=== PATIENT | male | born 1945 | race Caucasian/White ===

== ENCOUNTER 2018-01-06 16:53 | Inpatient (IN) | payer OTHER ==
[2018-01-06] MEDS: SODIUM CHLORIDE 0.9% 1L BAG IV* (22:06)
[2018-01-06] MEDS: VANCOMYCIN 1 GM (PMX) 250 ML IVPB (22:08)
[2018-01-06] MEDS: PIPER-TAZO 3.375 GM IV (PMX) 100 ML IVPB (22:08)
[2018-01-06 22:17] LABS: ADD MAN DIFF? NO
[2018-01-06 22:22] LABS: BASOPHILS % 0.2 % (0.0-2.0); EOSINOPHILS # 0.1 10^3/ul (0.0-0.5); EOSINOPHILS % 0.6 % (0.0-7.0); HEMATOCRIT 38.8 % (42.0-52.0); LYMPHOCYTES # 1.1 10^3/ul (0.8-2.9); LYMPHOCYTES % 12.9 % (15.0-51.0); MEAN CORPUSCULAR HEMOGLOBIN 31.5 pg (29.0-33.0); MEAN CORPUSCULAR HGB CONC 33.5 g/dl (32.0-37.0); MEAN CORPUSCULAR VOLUME 93.9 fl (82.0-101.0); MONOCYTE # 0.5 10^3/ul (0.3-0.9); MONOCYTES % 6.3 % (0.0-11.0); NEUTROPHIL # 6.7 10^3/ul (1.6-7.5); NEUTROPHILS % 79.8 % (39.0-77.0); PLATELET COUNT 355 10^3/UL (140-415); RED BLOOD COUNT 4.13 10^6/ul (4.70-6.10); RED CELL DISTRIBUTION WIDTH 13.5 % (11.5-14.5)
[2018-01-06 22:22] LABS: WHITE BLOOD COUNT 8.4 10^3/ul (4.8-10.8)
[2018-01-06] MEDS ORDERED: ONDANSETRON 4 MG INJ IV ×2 (22:30)
[2018-01-06] MEDS ORDERED: ACETAMINOPHEN 325 MG TAB PO ×2 (22:30)
[2018-01-06] MEDS ORDERED: ZOLPIDEM 5 MG TAB PO ×2 (22:30→23:00)
[2018-01-06] MEDS ORDERED: MAGNESIUM HYDROXIDE 30ML CUP PO (22:30)
[2018-01-06] MEDS ORDERED: BISACODYL (EC) 5 MG TAB PO (22:30)
[2018-01-06] MEDS ORDERED: ALBUTEROL/IPRATROPIUM (NEB) 3 ML AMP HHN (22:30)
[2018-01-06] MEDS ORDERED: NACL 0.9% 3 ML SYG IV (22:30)
[2018-01-06] MEDS ORDERED: DOCUSATE SODIUM 100 MG CAP PO (22:30)
[2018-01-06] MEDS ORDERED: OXYCODONE/ACETAMINOPHEN (5/325) TAB PO (22:30)
[2018-01-06] MEDS ORDERED: morphine 2 MG INJ IV (22:30)
[2018-01-06 22:39] LABS: INR 0.83; PROTIME 11.5 Sec (11.9-14.9); PT RATIO 0.9
[2018-01-06 22:40] LABS: PARTIAL THROMBOPLASTIN TIME 28.8 Sec (25.0-35.0)
[2018-01-06 22:43] LABS: ALANINE AMINOTRANSFERASE 35 IU/L (13-69); ALBUMIN 3.3 g/dl (3.3-4.9); ALKALINE PHOSPHATASE 88 IU/L (42-121); ANION GAP 13 (8-16); ASPARTATE AMINO TRANSFERASE 28 IU/L (15-46); BILIRUBIN,INDIRECT 0.4 mg/dl (0-1.1); BILIRUBIN,TOTAL 0.4 mg/dl (0.2-1.3); BLOOD UREA NITROGEN 20 mg/dl (7-20); CALCIUM 9.3 mg/dl (8.4-10.2); CARBON DIOXIDE 32 mmol/L (21-31); CHLORIDE 96 mmol/L (97-110); CREATININE 0.68 mg/dl (0.61-1.24); GLUCOSE 187 mg/dl (70-220); POTASSIUM 4.2 mmol/L (3.5-5.1); SODIUM 137 mmol/L (135-144); TOTAL PROTEIN 6.6 g/dl (6.1-8.1)
[2018-01-06 22:44] LABS: LACTIC ACID 1.8 mmol/L (0.5-2.0)
[2018-01-06 22:57] LABS: TROPONIN-I < 0.012 ng/ml (0.00-0.12)
[2018-01-06] MEDS ORDERED: INSULIN GLARGINE [LANtus] 3 ML PEN SC (23:00)
[2018-01-06] MEDS ORDERED: VANCOMYCIN IV PER PHARMACY XX (23:00)
[2018-01-06] MEDS ORDERED: LIDOCAINE 1% (MPF) 5 ML VIAL SC (23:00)
[2018-01-07] MEDS: SOD CHLORIDE 0.45% 1,000 ML IV
[2018-01-07 00:21] LABS: LACTIC ACID 1.1 mmol/L (0.5-2.0)
[2018-01-07] MEDS: INSULIN GLARGINE [LANtus] 3 ML PEN SC ×2 (01:18→20:20)
[2018-01-07] MEDS ORDERED: morphine 2 MG INJ IV ×2 (01:30→06:30)
[2018-01-07] MEDS: ACCU-CHEK XX ×4 (02:00→20:05)
[2018-01-07 02:34] LABS: LACTIC ACID 1.1 mmol/L (0.5-2.0)
[2018-01-07] MEDS: PIPER-TAZO 3.375 GM IV (PMX) 100 ML IVPB ×3 (05:15→22:25)
[2018-01-07] MEDS ORDERED: LORAZEPAM 1 MG TAB PO (06:30)
[2018-01-07 07:16] LABS: ADD MAN DIFF? NO
[2018-01-07 07:21] LABS: WHITE BLOOD COUNT 5.2 10^3/ul (4.8-10.8)
[2018-01-07 07:21] LABS: BASOPHILS % 0.4 % (0.0-2.0); EOSINOPHILS # 0.1 10^3/ul (0.0-0.5); EOSINOPHILS % 1.9 % (0.0-7.0); HEMATOCRIT 32.7 % (42.0-52.0); HEMOGLOBIN 10.9 g/dl (14.0-18.0); LYMPHOCYTES # 1.1 10^3/ul (0.8-2.9); LYMPHOCYTES % 21.3 % (15.0-51.0); MEAN CORPUSCULAR HEMOGLOBIN 31.1 pg (29.0-33.0); MEAN CORPUSCULAR HGB CONC 33.3 g/dl (32.0-37.0); MEAN CORPUSCULAR VOLUME 93.4 fl (82.0-101.0); MEAN PLATELET VOLUME 8.6 fl (7.4-10.4); MONOCYTE # 0.5 10^3/ul (0.3-0.9); MONOCYTES % 10.2 % (0.0-11.0); NEUTROPHIL # 3.4 10^3/ul (1.6-7.5); PLATELET COUNT 322 10^3/UL (140-415); RED CELL DISTRIBUTION WIDTH 13.6 % (11.5-14.5)
[2018-01-07] MEDS ORDERED: INSULIN ASPART [NOVOLOG] 3 ML PEN SC ×2 (07:35)
[2018-01-07 07:52] LABS: ALANINE AMINOTRANSFERASE 33 IU/L (13-69); ALBUMIN 2.8 g/dl (3.3-4.9); ALKALINE PHOSPHATASE 67 IU/L (42-121); ANION GAP 9 (8-16); ASPARTATE AMINO TRANSFERASE 25 IU/L (15-46); BILIRUBIN,INDIRECT 0.3 mg/dl (0-1.1); BILIRUBIN,TOTAL 0.3 mg/dl (0.2-1.3); BLOOD UREA NITROGEN 15 mg/dl (7-20); CALCIUM 8.7 mg/dl (8.4-10.2); CARBON DIOXIDE 32 mmol/L (21-31); CHLORIDE 104 mmol/L (97-110); CHOL/HDL RATIO 2.7 RATIO; CHOLESTEROL 109 mg/dl (100-200); CREATININE 0.74 mg/dl (0.61-1.24); HDL CHOLESTEROL 40 mg/dl (31-75); LDL CHOLESTEROL,CALCULATED 59 mg/dl; MAGNESIUM 1.9 mg/dl (1.7-2.5); POTASSIUM 3.6 mmol/L (3.5-5.1); SODIUM 141 mmol/L (135-144); TOTAL PROTEIN 5.6 g/dl (6.1-8.1); TRIGLYCERIDES 50 mg/dl (0-149)
[2018-01-07 08:14] LABS: GLUCOSE 35 mg/dl (70-220)
[2018-01-07] MEDS ORDERED: DEXTROSE 50% 50 ML SYRINGE (08:24)
[2018-01-07] MEDS ORDERED: GLUCOSE GEL 15 GRAM TUBE BUCCAL (08:30)
[2018-01-07] MEDS ORDERED: GLUCAGON 1 MG INJ IM (08:30)
[2018-01-07] MEDS ORDERED: GLUCOSE GEL 15 GRAM TUBE PO ×2 (08:30)
[2018-01-07] MEDS ORDERED: DEXTROSE 50% 50 ML SYRINGE IV (08:30)
[2018-01-07] MEDS: DEXTROSE 50% 50 ML SYRINGE IV (08:31)
[2018-01-07] MEDS ORDERED: HYDROCHLOROTHIAZIDE 25 MG TAB PO (09:00)
[2018-01-07] MEDS: VANCOMYCIN 1 GM 250 ML IVPB (09:44)
[2018-01-07] MEDS: FAMOTIDINE 20 MG TAB PO ×2 (09:45→20:22)
[2018-01-07] MEDS: ASPIRIN (EC) 81 MG TAB PO (09:45)
[2018-01-07] MEDS: METOPROLOL (XL) 25 MG TAB PO (09:46)
[2018-01-07] MEDS: ENOXAPARIN 40 MG/0.4 ML SYG SC (09:48)
[2018-01-07 09:53] LABS: C-REACTIVE PROTEIN 0.8 mg/dl (0.0-0.9)
[2018-01-07 10:01] LABS: HEMOGLOBIN A1C 6.1 % (0-5.9)
[2018-01-07] MEDS: Discontinue current oral sulfonylureas (glyburide, glipizide, and/or glimepiride) prior to XX (10:16)
[2018-01-07] MEDS: INSULIN ASPART [NOVOLOG] 3 ML PEN SC ×5 (12:00→21:00)
[2018-01-07] MEDS: ENALAPRIL 10 MG TAB PO ×2 (12:23→21:00)
[2018-01-07 12:48] LABS: ERYTHROCYTE SEDIMENTATION RATE 25 mm/Hr (0-20)
[2018-01-07] MEDS: VANCOMYCIN 750 MG in DEXTROSE 5% 150 ML IVPB (20:21)
[2018-01-07] MEDS: ATORVASTATIN 10 MG TAB PO (20:22)
[2018-01-07] MEDS ORDERED: INSULIN GLARGINE [LANtus] 3 ML PEN SC (21:00)
[2018-01-08] MEDS: ACCU-CHEK XX (02:00)
[2018-01-08] MEDS: PIPER-TAZO 3.375 GM IV (PMX) 100 ML IVPB ×3 (05:18→21:40)
[2018-01-08 06:07] LABS: ADD MAN DIFF? NO
[2018-01-08 06:40] LABS: BASOPHILS % 0.6 % (0.0-2.0); EOSINOPHILS # 0.1 10^3/ul (0.0-0.5); EOSINOPHILS % 2.3 % (0.0-7.0); HEMATOCRIT 35.5 % (42.0-52.0); HEMOGLOBIN 11.9 g/dl (14.0-18.0); LYMPHOCYTES # 1.3 10^3/ul (0.8-2.9); LYMPHOCYTES % 24.1 % (15.0-51.0); MEAN CORPUSCULAR HEMOGLOBIN 31.4 pg (29.0-33.0); MEAN CORPUSCULAR HGB CONC 33.5 g/dl (32.0-37.0); MEAN CORPUSCULAR VOLUME 93.7 fl (82.0-101.0); MEAN PLATELET VOLUME 8.8 fl (7.4-10.4); MONOCYTE # 0.6 10^3/ul (0.3-0.9); NEUTROPHIL # 3.2 10^3/ul (1.6-7.5); NEUTROPHILS % 61.6 % (39.0-77.0); PLATELET COUNT 324 10^3/UL (140-415); RED BLOOD COUNT 3.79 10^6/ul (4.70-6.10); RED CELL DISTRIBUTION WIDTH 13.8 % (11.5-14.5)
[2018-01-08 06:40] LABS: WHITE BLOOD COUNT 5.2 10^3/ul (4.8-10.8)
[2018-01-08 06:56] LABS: ALANINE AMINOTRANSFERASE 37 IU/L (13-69); ALBUMIN 2.9 g/dl (3.3-4.9); ALBUMIN/GLOBULIN RATIO 0.96; ALKALINE PHOSPHATASE 66 IU/L (42-121); ANION GAP 10 (8-16); ASPARTATE AMINO TRANSFERASE 22 IU/L (15-46); BILIRUBIN,INDIRECT 0.2 mg/dl (0-1.1); BILIRUBIN,TOTAL 0.2 mg/dl (0.2-1.3); BLOOD UREA NITROGEN 15 mg/dl (7-20); CALCIUM 8.5 mg/dl (8.4-10.2); CARBON DIOXIDE 32 mmol/L (21-31); CHLORIDE 107 mmol/L (97-110); CREATININE 0.84 mg/dl (0.61-1.24); POTASSIUM 3.8 mmol/L (3.5-5.1); SODIUM 145 mmol/L (135-144); TOTAL PROTEIN 5.9 g/dl (6.1-8.1)
[2018-01-08 06:57] LABS: PHOSPHORUS 5.5 mg/dl (2.5-4.9)
[2018-01-08 07:33] LABS: GLUCOSE 35 mg/dl (70-220)
[2018-01-08] MEDS: INSULIN ASPART [NOVOLOG] 3 ML PEN SC ×7 (07:46→21:00)
[2018-01-08 08:46] LABS: VANCOMYCIN,TROUGH 10.4 ug/ml (10.0-20.0)
[2018-01-08] MEDS: METOPROLOL (XL) 25 MG TAB PO (08:49)
[2018-01-08] MEDS: ENALAPRIL 10 MG TAB PO ×2 (08:49→21:40)
[2018-01-08] MEDS: ENOXAPARIN 40 MG/0.4 ML SYG SC (08:50)
[2018-01-08] MEDS: FAMOTIDINE 20 MG TAB PO ×2 (08:50→21:35)
[2018-01-08] MEDS: ASPIRIN (EC) 81 MG TAB PO (08:50)
[2018-01-08] MEDS: VANCOMYCIN 750 MG in DEXTROSE 5% 150 ML IVPB (09:39)
[2018-01-08] MEDS: LIDOCAINE 1% (MPF) 5 ML VIAL SC (14:30)
[2018-01-08] MEDS: ATORVASTATIN 10 MG TAB PO (21:35)
[2018-01-08] MEDS: INSULIN GLARGINE [LANtus] 3 ML PEN SC (21:39)
[2018-01-08] MEDS: VANCOMYCIN 1 GM 250 ML IVPB (23:14)
[2018-01-09] MEDS: ACCU-CHEK XX (02:00)
[2018-01-09 05:34] LABS: ADD MAN DIFF? NO
[2018-01-09] MEDS: PIPER-TAZO 3.375 GM IV (PMX) 100 ML IVPB (05:40)
[2018-01-09 05:41] LABS: WHITE BLOOD COUNT 5.5 10^3/ul (4.8-10.8)
[2018-01-09 05:41] LABS: BASOPHILS % 0.7 % (0.0-2.0); EOSINOPHILS # 0.2 10^3/ul (0.0-0.5); EOSINOPHILS % 3.2 % (0.0-7.0); HEMATOCRIT 36.1 % (42.0-52.0); HEMOGLOBIN 11.9 g/dl (14.0-18.0); LYMPHOCYTES # 1.3 10^3/ul (0.8-2.9); LYMPHOCYTES % 23.8 % (15.0-51.0); MEAN CORPUSCULAR HEMOGLOBIN 31.2 pg (29.0-33.0); MEAN CORPUSCULAR VOLUME 94.8 fl (82.0-101.0); MEAN PLATELET VOLUME 8.7 fl (7.4-10.4); MONOCYTE # 0.5 10^3/ul (0.3-0.9); MONOCYTES % 9.2 % (0.0-11.0); NEUTROPHIL # 3.5 10^3/ul (1.6-7.5); NEUTROPHILS % 62.9 % (39.0-77.0); PLATELET COUNT 318 10^3/UL (140-415); RED BLOOD COUNT 3.81 10^6/ul (4.70-6.10); RED CELL DISTRIBUTION WIDTH 13.8 % (11.5-14.5)
[2018-01-09 05:59] LABS: MAGNESIUM 2.1 mg/dl (1.7-2.5)
[2018-01-09 06:01] LABS: ANION GAP 8 (8-16); BLOOD UREA NITROGEN 18 mg/dl (7-20); CALCIUM 8.5 mg/dl (8.4-10.2); CARBON DIOXIDE 28 mmol/L (21-31); CHLORIDE 106 mmol/L (97-110); CREATININE 0.79 mg/dl (0.61-1.24); GLUCOSE 248 mg/dl (70-220); POTASSIUM 4.4 mmol/L (3.5-5.1); SODIUM 138 mmol/L (135-144)
[2018-01-09] MEDS: INSULIN ASPART [NOVOLOG] 3 ML PEN SC ×4 (08:05→12:02)
[2018-01-09] MEDS: METOPROLOL (XL) 25 MG TAB PO (08:41)
[2018-01-09] MEDS: ASPIRIN (EC) 81 MG TAB PO (08:44)
[2018-01-09] MEDS: ENALAPRIL 10 MG TAB PO (08:44)
[2018-01-09] MEDS: FAMOTIDINE 20 MG TAB PO (08:44)
[2018-01-09] MEDS: ENOXAPARIN 40 MG/0.4 ML SYG SC (08:44)
[2018-01-09] MEDS: VANCOMYCIN 1 GM 250 ML IVPB (10:11)
[2018-01-09] MEDS: LACTOBACILLUS RHAMNOSUS CAP PO (11:56)
[2018-01-09] MEDS: LEVOFLOXACIN 750 MG TABLET PO (11:56)
== END 2018-01-09 16:08 | disposition home health service (06) | DRG 593 ==
LOC: PP2 22:30 → E/R 16:53
PROC: 02HV33Z Insertion of Infusion Device into Superior Vena Cava, Percutaneous Approach (ICD-10-PCS; principal; 2018-01-08)
DX: L97.516 Non-pressure chronic ulcer of other part of right foot with bone involvement without evidence of necrosis (principal); M86.8X7 Other osteomyelitis, ankle and foot; M00.9 Pyogenic arthritis, unspecified; E11.621 Type 2 diabetes mellitus with foot ulcer; L03.115 Cellulitis of right lower limb; E11.69 Type 2 diabetes mellitus with other specified complication; I10 Essential (primary) hypertension; E78.5 Hyperlipidemia, unspecified; Z79.4 Long term (current) use of insulin
CPT/HCPCS: 36415; 36569; 71045; 73630; 73718; 76937; 80048; 80053; 80061; 80202; 82962; 83036; 83605; 83735; 84100; 84443; 84484; 85025; 85610; 85651; 85730; 86140; 87040; 87070; 93005; 96374; 96375; 97162; 99285-25